=== PATIENT | male | born 1950 | race Caucasian/White ===

== ENCOUNTER 2016-07-16 17:41 | Emergency (ER) | payer OTHER, BC ==
[~2016-07-16] VITALS: Ht 180.3 cm; Wt 92.5 kg
[~2016-07-16 17:41] MED LIST: ALBUTEROL SULF8.5 GM IH; COLACE100 MG PO; FLONASE16 G1 BOTH NARES; HYCODAN SYRUP480 ML PO; LEVAQUIN750 MG PO; LORTAB 5-325 M1 EACH PO; MUCINEX DM ER1 EACH PO; MUCUS RELIEF600 MG PO; NAPROSYN500 MG PO; NOHOMEMEDS; NORCO 5/3251 TABLET PO; PREDNISONE10 M1 PO; PREDNISONE20 MG PO; TESSALON PERLE100 MG PO; ULTRAM50 MG PO; VENTOLIN HFA18 GM IH; ZITHROMAX Z-PA250 MG PO
[2016-07-16 18:26] LABS: HEMATOCRIT 44.5 % (38.0-50.0); MCHC 35.1 G/DL (30.0-36.0); MCV 85.6 FL (86-99); MEAN PLAT.VOLUME 9.4 uM^3 (9.0-12.4); PLATELET COUNT 242 K/uL (156-360); RBC DIS.WIDTH-CV 13.9 % (11.8-14.6); WHITE BLOOD COUNT 9.7 K/uL (4.1-10.2)
[2016-07-16 18:39] LABS: CHLORIDE 108 mEq/L (99-109); POTASSIUM 4.2 mEq/L (3.7-5.4); SODIUM 141 mEq/L (136-147)
[2016-07-16 18:41] LABS: GLUCOSE 104 mg/dL (70-99)
[2016-07-16 18:43] LABS: ANION GAP 11 MEQ/L (2-14)
[2016-07-16 18:45] LABS: GFR ESTIMATE (CALCULATED) 59 mL/min/
[2016-07-16 18:46] LABS: UREA NITROGEN (BUN) 17 mg/dL (9-23)
[2016-07-16 18:53] LABS: TROP-I INTERPRETATION NEGATIVE; TROPONIN-I 0.01 ng/mL (0.0-0.30)
[2016-07-16 20:04] LABS: TROP-I INTERPRETATION NEGATIVE; TROPONIN-I < 0.01 ng/mL (0.0-0.30)
[2016-07-16] MEDS ORDERED: PREDNISONE10 M1 PO (20:13)
[2016-07-16] MEDS ORDERED: TESSALON PERLE100 MG PO (20:13)
[2016-07-16 20:33] VITALS: BP 130/79
== END 2016-07-16 20:34 | disposition home or self-care (01) ==
LOC: EME 17:41
PROVIDERS: Physician Assistant
DX: J06.9 Acute upper respiratory infection, unspecified (principal); J44.0 Chronic obstructive pulmonary disease with (acute) lower respiratory infection; J20.9 Acute bronchitis, unspecified; Z87.442 Personal history of urinary calculi; Z85.51 Personal history of malignant neoplasm of bladder; Z87.891 Personal history of nicotine dependence
CPT/HCPCS: 71020; 80048; 84484; 85027; 93005; 94640; 99281; 99284

== ENCOUNTER 2016-07-20 08:25 | Emergency (ER) | payer OTHER, BC ==
[~2016-07-20] VITALS: Ht 180.3 cm; Wt 92.9 kg
[2016-07-20 09:00] LABS: HEMATOCRIT 44.6 % (38.0-50.0); MCH 30.5 PG (29.0-34.0); MCV 87.1 FL (86-99); MEAN PLAT.VOLUME 9.4 uM^3 (9.0-12.4); PLATELET COUNT 273 K/uL (156-360); RBC DIS.WIDTH-CV 14.3 % (11.8-14.6); RBC DIS.WIDTH-SD 45.1 % (39-53); RED BLOOD COUNT 5.12 M/uL (4.00-5.50); WHITE BLOOD COUNT 14.7 K/uL (4.1-10.2)
[2016-07-20 09:04] LABS: CHLORIDE 108 mEq/L (99-109); POTASSIUM 3.8 mEq/L (3.7-5.4); SODIUM 140 mEq/L (136-147)
[2016-07-20 09:05] LABS: GLUCOSE 82 mg/dL (70-99)
[2016-07-20 09:07] LABS: ANION GAP 10 MEQ/L (2-14)
[2016-07-20 09:09] LABS: GFR ESTIMATE (CALCULATED) > 59 mL/min/
[2016-07-20 09:10] LABS: UREA NITROGEN (BUN) 19 mg/dL (9-23)
[2016-07-20] MEDS ORDERED: ROBITUSSIN NIG118 ML PO (11:22)
[2016-07-20] MEDS ORDERED: MUCUS ER600 MG PO (11:22)
[2016-07-20] MEDS ORDERED: ZITHROMAX Z-PA250 MG PO (11:22)
[2016-07-20 11:32] VITALS: BP 157/75
== END 2016-07-20 11:33 | disposition home or self-care (01) ==
LOC: EME 08:25
DX: J44.0 Chronic obstructive pulmonary disease with (acute) lower respiratory infection (principal); J20.9 Acute bronchitis, unspecified; J30.2 Other seasonal allergic rhinitis; Z87.442 Personal history of urinary calculi; Z87.891 Personal history of nicotine dependence
CPT/HCPCS: 71020; 80048; 85027; 99281; 99283

== ENCOUNTER 2017-12-16 09:03 | Emergency (ER) | payer OTHER ==
[~2017-12-16] VITALS: Ht 154.9 cm; Wt 89.5 kg
[~2017-12-16 09:03] MED LIST changes: +MUCUS ER600 MG PO; +ROBITUSSIN NIG118 ML PO
[2017-12-16] MEDS ORDERED: FLEXERIL10 MG PO (10:36)
[2017-12-16] MEDS ORDERED: NAPROSYN500 MG PO (10:36)
[2017-12-16 10:53] VITALS: BP 139/89
== END 2017-12-16 10:54 | disposition home or self-care (01) ==
LOC: EME 09:03
DX: M54.5 Low back pain (principal); M62.838 Other muscle spasm; Z88.0 Allergy status to penicillin; F17.200 Nicotine dependence, unspecified, uncomplicated; M25.78 Osteophyte, vertebrae
CPT/HCPCS: 72100; 99281; 99284

== ENCOUNTER 2017-12-19 18:53 | Emergency (ER) | payer OTHER ==
[~2017-12-19] VITALS: Ht 167.6 cm; Wt 89.6 kg
[~2017-12-19 18:53] MED LIST changes: +FLEXERIL10 MG PO
[2017-12-19] MEDS ORDERED: PERCOCET 5/31 TABLET PO (20:16)
[2017-12-19 20:45] VITALS: BP 144/84
== END 2017-12-19 21:02 | disposition home or self-care (01) ==
LOC: EME 18:53
DX: M54.41 Lumbago with sciatica, right side (principal); J44.9 Chronic obstructive pulmonary disease, unspecified; F17.200 Nicotine dependence, unspecified, uncomplicated; Z87.442 Personal history of urinary calculi; Z87.39 Personal history of other diseases of the musculoskeletal system and connective tissue; Z85.9 Personal history of malignant neoplasm, unspecified; Z88.0 Allergy status to penicillin
CPT/HCPCS: 99281; 99283; J1100